=== PATIENT | male | born 1960 | race Caucasian/White ===

== ENCOUNTER → 2019-01-31 | Outpatient (CLI) | payer OTHER | LOC: LL.DI 13:13 | PROVIDERS: ATTEND Family Medicine | DX: M54.9 Dorsalgia, unspecified (principal); M25.561 Pain in right knee; M25.562 Pain in left knee; M47.816 Spondylosis without myelopathy or radiculopathy, lumbar region; M48.061 Spinal stenosis, lumbar region without neurogenic claudication; M25.78 Osteophyte, vertebrae; M17.0 Bilateral primary osteoarthritis of knee; M25.862 Other specified joint disorders, left knee; M25.861 Other specified joint disorders, right knee; M25.762 Osteophyte, left knee; M25.761 Osteophyte, right knee | CPT/HCPCS: 72100; 73565 ==